=== PATIENT | male | born 1995 | race Caucasian/White ===

== ENCOUNTER 2023-07-21 02:15 | Emergency (ER) | payer SELFPAY ==
[2023-07-21 02:24] VITALS: BP 124/75; PULSE 63; RESP 24; TEMP 36.6; O2SAT 99; BMI 22.4
[2023-07-21 02:47] LABS: Basophils % 0.3 %; Eosinophils # 0.4 10^3/uL (0.0-0.8); Eosinophils % 3.3 %; Hematocrit 41.2 % (37-53); Lymphocytes # 1.8 10^3/uL (0.8-4.8); Lymphocytes % 15.6 %; Mean Corpuscular HGB Conc 33.5 g/dL (30-55); Mean Corpuscular Hemoglobin 30.5 pg (27-33); Mean Corpuscular Volume 90.9 fl (82-101); Monocytes # 0.8 10^3/uL (0.2-0.9); Monocytes % 6.4 %; Neutrophils # 8.63 10^3/uL (1.8-7.7); Neutrophils % 74.1 %; Nucleated Red Blood Cells % 0 %; Platelet Count 214 10^3/cmm (157-399); Red Blood Count 4.53 10^6/uL (3.85-5.65); Red Cell Distribution Width 12.1 % (12.1-15.1); White Blood Count 11.64 10^3/uL (3.29-11.43)
[2023-07-21 03:11] LABS: Lactic Sepsis W/Reflex 1.5 mmol/L (0.5-2.2)
[2023-07-21 03:12] VITALS: BP 109/63; PULSE 56; RESP 21; O2SAT 97
[2023-07-21 03:14] LABS: Alanine Aminotransferase 20 U/L (0-41); Albumin Level 4.4 g/dL (3.5-5.2); Alkaline Phosphatase 82 U/L (40-130); Anion Gap 14.1 (5-19); Aspartate Amino Transferase 23 U/L (0-40); Blood Urea Nitrogen 12 mg/dL (6-20); Calcium 9.2 mg/dL (8.5-10.5); Carbon Dioxide 28 mmol/L (22-29); Chloride 103 mmol/L (98-107); Creatinine Clr Calc Pharmacy 151.4007; Globulin 3.1 g/dL (1.3-4.6); Glomerular Filtration Rate 116.9 mL/min (90-130); Glucose 105 mg/dL (65-115); Osmolality Calculated 292 mOsm/kg (285-295); Potassium 4.1 mmol/L (3.5-5.1); Sodium 141 mmol/L (136-145); Total Bilirubin 0.3 mg/dL (0.15-1.2); Total Protein 7.5 g/dL (6.6-8.7)
[2023-07-21 03:20] LABS: Prolactin 22.57 ng/mL (4.0-15.2)
--- NOTE | 2023-07-21 03:36 | ED_ITS ---
HPI - Seizure 2 General: Chief Complaint: Seizure Stated Complaint: seizures, vomiting, headache Time Seen by Provider: 07/21/23 02:23 History of Present Illness: HPI Narrative: 28-year-old male presents to the emergen cy department with his family member. The family member states that they are concerned that he may have had approximately 20 seizures throughout the day today. For member states they just moved to the area from [place] and that the patient has had a complete evaluation by neurology and an EEG in [place] and they were told that there was no active or underlying seizures that they could diagnose on the EEG. The patient takes no antiepileptic medications. Upon evaluation the patient does appear to be shaking his bilateral upper extremities and no other shaking type movements to the rest of his body. The patient is able to answer questions during his seizure type activity. He is awake alert and oriented and does not appear to be in any acute distress. He does state that he recently used delta 8 which is a synthetic marijuana. He denies chest pain or shortness of breath. Both the family member and the patient states that they have not attempted to establish with a neurologist here in the area and that it has been several years since they last saw a neurologist. Review of Systems 2 General: Reports: 10 or more systems reviewed and unremarkable except in HPI and below Neuro: Reports: seizure-like activity Physical Exam 2 Narrative: EXAM NARRATIVE: Constitutional: the patient appears well nourished and with normal development. Vital signs reviewed as documented. GCS 15, alert and oriented x 4-person, place, time and situation. HENMT: Normocephalic, atraumatic. External ears normal appearance without drainage. Nose without drainage, normal appearance. Mucus membranes moist. Neck is supple, No jugular venous distension, trachea is midline, no appreciable carotid bruits. No lymphadenopathy. No meningeal signs. Flexion, extension and lateral rotation is without pain. Eyes: Pupils are equal, round, reactive to light and accommodation. No scleral icterus. Extra-ocular movement are intact. Thorax is symmetrical and with equal rise and fall with respirations. Resp: Lungs are clear to auscultation. No wheezes, rales, crackles or ronchi at present. Cardio: Regular rate and rhythm. Positive S1, S2. No appreciable murmurs, rubs or gallops. GI: Abdominal exam reveals normal bowel sounds to all quadrants. No organomegaly. No obvious palpable masses noted. No hepatomegally appreciated. Soft, non-tender to palpation. Extremity: Extremities are non-edematous and both femoral and pedal pulses are 2+ and equal bilaterally. Moves all extremities well, sensation in all extremities. Neuro: Alert and oriented x4, person, place, time and situation. Cranial nerves II through XII are grossly intact, there is no focal neurological deficits that I can appreciate at present. Sensation intact to all extremities. 2-point discrimination intact. Light touch intact to all extremities. Motor strength in the upper and lower extremities are equal and bilateral 5/5. Psych: Cooperative, calm, normal thought process, appropriate judgment. Skin: No lesions, rashes. No gross abnormalities noted. Back: Symmetrical, no obvious deformity, No CVA tenderness Course 2 Vital Signs: Vital signs: Vital Signs Temperature 97.8 F 07/21/23 02:24 Pulse Rate 55 L 07/21/23 04:02 Respiratory Rate 19 H 07/21/23 04:02 Blood Pressure 108/63 07/21/23 04:02 Pulse Oximetry 97 07/21/23 04:02 Oxygen Delivery Me thod Room Air 07/21/23 02:24 MDM - Seizure MDM Narrative Medical decision making narrative: Physical exam completed and documented I will obtain a CBC and CMP as well as a lactic acid and prolactin level. Given the patient's presentation and complete neurological awareness and no postictal period the physical exam findings that I am seeing do not support diagnosis of active seizure disorder or seizure type activity at present. Lab Data 07/21/23 02:31 07/21/23 02:31 Labs: Laboratory Results WBC 11.64 10^3/uL (3.29-11.43) H 07/21/23 02:31 RBC 4.53 10^6/uL (3.85-5.65) 07/21/23 02:31 Hgb 13.80 g/dL (11.27-16.99) 07/21/23 02:31 Hct 41.2 % (37-53) 07/21/23 02:31 MCV 90.9 fl (82-101) 07/21/23 02:31 MCH 30.5 pg (27-33) 07/21/23 02:31 MCHC 33.5 g/dL (30-55) 07/21/23 02:31 RDW 12.1 % (12.1-15.1) 07/21/23 02:31 Plt Count 214 10^3/cmm (157-399) 07/21/23 02:31 MPV 10.0 fL (7.4-10.4) 07/21/23 02:31 Neut % (Auto) 74.1 % 07/21/23 02:31 Lymph % (Auto) 15.6 % 07/21/23 02:31 Randall % (Auto) 6.4 % 07/21/23 02:31 Eos % (Auto) 3.3 % 07/21/23 02:31 Baso % (Auto) 0.3 % 07/21/23 02:31 Neut # (Auto) 8.63 10^3/uL (1.8-7.7) H 07/21/23 02:31 Lymph # (Auto) 1.8 10^3/uL (0.8-4.8) 07/21/23 02:31 Randall # (Auto) 0.8 10^3/uL (0.2-0.9) 07/21/23 02:31 Eos # (Auto) 0.4 10^3/uL (0.0-0.8) 07/21/23 02:31 Baso # (Auto) 0.0 10^3/uL (0.0-0.1) 07/21/23 02:31 Nucleated RBC % (auto) 0 % 07/21/23 02:31 Nucleated RBCs # 0.0 /100WBC 07/21/23 02:31 Sodium 141 mmol/L (136-145) 07/21/23 02:31 Potassium 4.1 mmol/L (3.5-5.1) 07/21/23 02:31 Chloride 103 mmol/L (98-107) 07/21/23 02:31 Carbon Dioxide 28 mmol/L (22-29) 07/21/23 02:31 Anion Gap 14.1 (5-19) 07/21/23 02:31 BUN 12 mg/dL (6-20) 07/21/23 02:31 Creatinine 0.8 mg/dL (0.7-1.2) 07/21/23 02:31 GFR Calculation 116.9 mL/min (90-130) 07/21/23 02:31 Glucose 105 mg/dL (65-115) 07/21/23 02:31 Calculated Osmolality 292 mOsm/kg (285-295) 07/21/23 02:31 Lactic Acid 1.5 mmol/L (0.5-2.2) 07/21/23 02:31 Calcium 9.2 mg/dL (8.5-10.5) 07/21/23 02:31 Total Bilirubin 0.3 mg/dL (0.15-1.2) 07/21/23 02:31 AST 23 U/L (0-40) 07/21/23 02:31 ALT 20 U/L (0-41) 07/21/23 02:31 Alkaline Phosphatase 82 U/L (40-130) 07/21/23 02:31 Total Protein 7.5 g/dL (6.6-8.7) 07/21/23 02:31 Albumin 4.4 g/dL (3.5-5.2) 07/21/23 02:31 Globulin 3.1 g/dL (1.3-4.6) 07/21/23 02:31 Prolactin 22.57 ng/mL (4.0-15.2) H 07/21/23 02:31 No radiology studies performed this visit Discharge Plan Discharge Patient Disposition: Home Clinical Impression: Functional neurological symptom disorder with attacks or seizures, Substance abuse or dependence Condition: Stable Discharge Orders: Discharge ED (Routine); Ordered 07/21/23 Ordered By: Breezy Diop Referrals: Urbano Davila [Primary Care Provider] - Discharge Diet: Usual diet Discharge Activity: Resume usual activity Patient Instructions: Opioid Safety, Pain Management Activity Restrictions/Additional Instructions: Activity Restrictions/Additional Instructions: Thank you for choosing [facility] for your healthcare needs today. Please realize that you were seen in the Emergency Department and that we are providing you with an emergency medical screening exam and this may not be a complete and all inclusive of all the testing and or medical work-up that you may need to determine your ailment or severity of your illness. It is very important that you follow-up as instructed with your Primary care provider or Specialist for additional evaluation and to discuss your medical treatment plan. Coding Level of Care Code ED Field Pipelines Supervisor for Víctor Eid
[2023-07-21 04:02] VITALS: BP 108/63; PULSE 55; RESP 19; O2SAT 97
== END 2023-07-21 04:05 | disposition home or self-care (01) ==
PROVIDERS: Emergency Provider Internal Medicine; PCP Family Medicine
DX: F44.5 Conversion disorder with seizures or convulsions (principal); F12.20 Cannabis dependence, uncomplicated
CPT/HCPCS: 80053; 83605; 84146; 85025; 99283

== ENCOUNTER 2023-08-03 13:54 | Emergency (ER) | payer MEDICAID, SELFPAY ==
[2023-08-03 14:00] VITALS: BP 122/72; PULSE 64; RESP 16; TEMP 36.6; O2SAT 98
--- NOTE | 2023-08-03 14:10 | ECG_ITS ---
[facility] Test Date: 2023-08-03 Pat Name: Gonzalez Hanna Department: Room: Gender: Male [employer] Site Monitor: : 1995 Requested By: Silvia Zeng Order Number: [id number] Yony MD: Jordon Ugarte M.D. Measurements Intervals Cando Rate: 66 P: 61 [place]: 134 QRS: 57 QRSD: 96 T: 36 QT: 394 QTc: 416 Interpretive Statements SINUS RHYTHM No previous ECG available for comparison Electronically Signed On 08-03-2023 15:05:16 CDT by Jordon Ugarte M.D. [id number]
--- NOTE | 2023-08-03 14:41 | W.ED.SEIZURE ---
HPI - Seizure General: Chief Complaint: Seizure Stated Complaint: seizures Time Seen by Provider: 08/03/23 14:16 Source: patient Mode of arrival: ambulatory History of Present Illness: HPI Narrative: 28-year-old male presents emergency room with report of seizures. He states he has been told in the past initially they were seizures and told they were not he is currently on Depakote for seizures. He reports sometimes he will wake up with these episodes while he is convulsing of other times or wakes up and he is staring off into space. Does not sound like he has any postictal phase of these episodes. His is here with him in the emergency room states at times he will have episodes in his sleep the longest episode she has seen is 2 minutes Shona like arches back and have some minor convulsive like movements in the extremities while he sleeping. She states the longest episode she is ever seen has been closer to 15 minutes. He had several days last several days. MD complaint: possible seizure Onset (ago): minute(s) Description of Episode: loss of consciousness and tonic-clonic movement Witnessed: Yes - by Bystander Trauma: No Seizure History: Yes Place: Home Possible Precipitating Event: none Associated symptoms: Deny chest pain, chills, confusion, cough, diaphoresis, fever(s), anorexia, malaise, rash, short of breath, syncope or weakness Treatments prior to arrival: none Review of Systems Const: Denies: fever(s), chills, malaise or diaphoresis Card: Denies: chest pain or syncope Resp: Denies: dyspnea GI: Denies: abdominal pain : Denies: dysuria, urinary frequency or urinary urgency Musc: Denies: neck pain or back pain Skin/Breast: Denies: rash Neuro: Denies: confusion Physical Exam Const: COMMON NORMALS: no acute distress GENERAL APPEARANCE: cooperative and comfortable ORIENTATION/CONSCIOUSNESS: Yes awake, Yes oriented to person, Yes oriented to place and Yes oriented to time HENMT: COMMON NORMALS: normocephalic, atraumatic and hearing grossly normal bilaterally HEAD & SCALP: normocephalic and atraumatic Resp: COMMON NORMALS: normal respiratory effort, No retractions, No use of accessory muscles and clear to auscultation bilaterally AUSCULTATION: clear to auscultation bilaterally Cardio: COMMON NORMALS: regular rate, regular rhythm and No murmurs present (Cardio) RATE: regular rate RHYTHM: regular rhythm GI: COMMON NORMALS: Soft to palpation and No hepatosplenomegaly present AUSCULTATION: Yes normoactive bowel sounds PALPATION: Yes Soft to palpation, No Tenderness to palpation present (GI), No Guarding due to palpation present (GI) and Yes No hepatosplenomegaly present Extremity: COMMON NORMALS: normal to inspection, capillary refill normal, no clubbing, cyanosis or edema, no calf tenderness and no pedal edema Neuro: SENSORIUM/ORIENTATION: Yes oriented to person, Yes oriented to place and Yes oriented to time Skin: COMMON NORMALS: no rashes or lesions noted GENERAL SKIN EXAM: no rashes or lesions noted Course Vital Signs: Vital signs: Vital Signs Temperature 97.9 F 08/03/23 14:00 Pulse Rate 57 L 08/03/23 16:06 Respiratory Rate 16 08/03/23 14:00 Blood Pressure 114/71 08/03/23 16:06 Pulse Oximetry 98 08/03/23 16:06 Oxygen Delivery Me thod Room Air 08/03/23 14:00 MDM - Seizure MDM Narrative Medical decision making narrative: No further episodes since arrival here. In talking to him does not sound like he has a true postictal phase and he wakes up what he describes as mid seizure at times. Valproic acid level is low we will increase him to 500 mg 3 times daily. Set up outpatient EEG and follow-up with neurology return if is further problems Lab Data 08/03/23 14:25 08/03/23 14:25 Labs: Laboratory Results WBC 6.13 10^3/uL (3.29-11.43) 08/03/23 14:25 RBC 4.34 10^6/uL (3.85-5.65) 08/03/23 14:25 Hgb 13.50 g/dL (11.27-16.99) 08/03/23 14:25 Hct 39.8 % (37-53) 08/03/23 14:25 MCV 91.7 fl (82-101) 08/03/23 14:25 MCH 31.1 pg (27-33) 08/03/23 14:25 MCHC 33.9 g/dL (30-55) 08/03/23 14:25 RDW 12.3 % (12.1-15.1) 08/03/23 14:25 Plt Count 184 10^3/cmm (157-399) 08/03/23 14:25 MPV 11.1 fL (7.4-10.4) H 08/03/23 14:25 Neut % (Auto) 56.3 % 08/03/23 14:25 Lymph % (Auto) 29.4 % 08/03/23 14:25 [place] % (Auto) 10.8 % 08/03/23 14:25 Eos % (Auto) 2.8 % 08/03/23 14:25 Baso % (Auto) 0.5 % 08/03/23 14: Neut # (Auto) 3.46 10^3/uL (1.8-7.7) 08/03/23 14: Lymph # (Auto) 1.8 10^3/uL (0.8-4.8) 08/03/23 14:25 [place] # (Auto) 0.7 10^3/uL (0.2-0.9) 08/03/23 14:25 Eos # (Auto) 0.2 10^3/uL (0.0-0.8) 08/03/23 14:25 Baso # (Auto) 0.0 10^3/uL (0.0-0.1) 08/03/23 14: Nucleated RBC % (auto) 0 % 08/03/23 14: Nucleated RBCs # 0.0 /100WBC 08/03/23 14:25 Specimen Type Arterial 08/03/23 14:42 Sample Site Radial, left 08/03/23 14:42 ABG pH 7.41 (7.35-7.45) 08/03/23 14:42 ABG pCO2 42.1 mmHg (35-45) 08/03/23 14:42 ABG pO2 93.8 mmHg (80.0-100.0) 08/03/23 14:42 ABG PO2/FiO2 Ratio 0 08/03/23 14:42 ABG HCO3 26.6 mmol/L (22-26) H 08/03/23 14:42 ABG O2 Saturation 98.0 08/03/23 14:42 ABG Base Excess 1.6 mmol/L (-2.0-2.0) 08/03/23 14:42 Raul Test Pos 08/03/23 14:42 A-a O2 Gradient 0.5 mmHg (5-10) L 08/03/23 14:42 Hematocrit 41.5 % (42-52) L 08/03/23 14:42 Hgb O2 Saturation 97.0 % (95-100) 08/03/23 14:42 Carboxyhemoglobin 0.6 %THgb (0.4-20.1) 08/03/23 14:42 Methemoglobin 0.4 % (0.4-1.5) 08/03/23 14:42 Total Hemoglobin 13.5 g/dL (14-18) L 08/03/23 14:42 Sodium 142.0 mmol/L (131-143) 08/03/23 14:42 Potassium 3.7 mmol/L (3.5-5.0) 08/03/23 14:42 Glucose 85.0 mg/dL (70-115) 08/03/23 14:42 Ionized Calcium 1.2 mmol/L (1.1-1.4) 08/03/23 14:42 O2 Delivery Device Room air 08/03/23 14:42 FiO2 21.0 % 08/03/23 14:42 Electronic Service Technician ID glc 08/03/23 14:42 Sodium 140 mmol/L (136-145) 08/03/23 14:25 Potassium 3.8 mmol/L (3.5-5.1) 08/03/23 14:25 Chloride 106 mmol/L (98-107) 08/03/23 14:25 Carbon Dioxide 25 mmol/L (22-29) 08/03/23 14:25 Anion Gap 12.8 (5-19) 08/03/23 14:25 BUN 13 mg/dL (6-20) 08/03/23 14:25 Creatinine 0.8 mg/dL (0.7-1.2) 08/03/23 14:25 GFR Calculation 116.9 mL/min (90-130) 08/03/23 14:25 Glucose 81 mg/dL (65-115) 08/03/23 14:25 Calculated Osmolality 289 mOsm/kg (285-295) 08/03/23 14:25 Lactic Acid 0.8 mmol/L (0.5-2.2) 08/03/23 14:25 Calcium 9.0 mg/dL (8.5-10.5) 08/03/23 14:25 Total Bilirubin 0.4 mg/dL (0.15-1.2) 08/03/23 14:25 AST 18 U/L (0-40) 08/03/23 14:25 ALT 16 U/L (0-41) 08/03/23 14:25 Alkaline Phosphatase 77 U/L (40-130) 08/03/23 14:25 Total Protein 7.2 g/dL (6.6-8.7) 08/03/23 14:25 Albumin 4.1 g/dL (3.5-5.2) 08/03/23 14:25 Globulin 3.1 g/dL (1.3-4.6) 08/03/23 14:25 Urine Color Yellow (Yellow) 08/03/23 14:24 Urine Appearance Clear (CLEAR) 08/03/23 14:24 Urine pH 7 (5-7) 08/03/23 14:24 Ur Specific [place] 1.010 (1.005-1.030) 08/03/23 14:24 Urine Protein Neg (Negative) 08/03/23 14:24 Urine Glucose (UA) Norm (Normal) 08/03/23 14:24 Urine Ketones Negative (Negative) 08/03/23 14:24 Urine Blood Neg (Negative) 08/03/23 14:24 Urine Nitrate Negative (Negative) 08/03/23 14:24 Urine Bilirubin Neg (Negative) 08/03/23 14:24 Urine Urobilinogen 1 mg/dL (Negative) H 08/03/23 14:24 Ur Leukocyte Esterase Negative (Negative) 08/03/23 14:24 Urine RBC None /hpf (0-2) 08/03/23 14:24 Urine WBC 10-15 /hpf (0-5) H 08/03/23 14:24 Ur Squamous Epith Cells 0-4 /hpf (0-5) H 08/03/23 14:24 Amorphous Sediment Not Reportable 08/03/23 14:24 Urine Bacteria Trace /hpf (NONE) 08/03/23 14:24 Urine Mucus Trace /hpf 08/03/23 14:24 Urine Opiates Screen Negative ng/mL (Negative) 08/03/23 14:24 Ur Barbiturates Screen Negative ng/mL (Negative) 08/03/23 14:24 Valproic Acid 5.9 ug/mL (50-100) L 08/03/23 14:25 Ur Phencyclidine Scrn Negative ng/mL (Negative) 08/03/23 14:24 Ur Amphetamines Screen Negative ng/mL (Negative) 08/03/23 14:24 U Benzodiazepines Scrn Negative ng/mL (Negative) 08/03/23 14:24 Urine Cocaine Screen Negative ng/mL (Negative) 08/03/23 14:24 U Marijuana (THC) Screen Positive ng/mL (Negative) H 08/03/23 14:24 No radiology studies performed this visit Discharge Plan Discharge Patient Disposition: Home Clinical Impression: Generalized seizure Condition: Stable Prescriptions: New divalproex 500 mg tablet,delayed release (DR/EC) 500 mg PO TID Qty: 90 0RF Discontinued divalproex 500 mg tablet,delayed release (DR/EC) 500 mg PO BID No Action fluoxetine 40 mg Capsule 40 mg PO DAILY trazodone 50 mg Tablet 50 mg PO BEDTIME PRN (Reason: Sleep) Discharge Orders: Discharge ED (Routine); Ordered 08/03/23 Ordered By: Pillo Veliz Referrals: Urbano Davila [Primary Care Provider] - Discharge Diet: Usual diet Discharge Activity: Resume usual activity Patient Instructions: Opioid Safety, Pain Management Activity Restrictions/Additional Instructions: Thank you for choosing [facility] for your healthcare needs today. Please realize this is an emergency room and that we are providing you with a medical screening exam and this may not be complete and all inclusive of all the testing and or work up that you may need to determine your ailment or severity of your illness. It is very important that you follow up as instructed or that you return to the Emergency Department should you have concerns or if your condition changes or worsens in any way. You were seen today after a report of having had a seizure. Recommend that you increase your valproic acid to 500 mg 3 times a day. Will set up an outpatient sleep deprived EEG and follow-up with neurology. Coding Level of Care Code ED Water Resource Engineer for Víctor Eid
[2023-08-03 14:52] LABS: ABG PCO2 42.1 mmHg (35-45); ABG PH Result 7.41 (7.35-7.45); Alveolar-Arterial Oxygen Gradi 0.5 mmHg (5-10); Arterial Blood Gas Hematocrit 41.5 % (42-52); Base Excess ABG 1.6 mmol/L (-2.0-2.0); Blood Gas Allen Test Pos; Blood Gas Operator Identificat glc; Blood Gas Sample Site Radial, left; Blood Gas Sample Type Arterial; Carboxyhemoglobin 0.6 %THgb (0.4-20.1); HCO3 ABG 26.6 mmol/L (22-26); Ionized Calcium Level - ABG 1.2 mmol/L (1.1-1.4); Methemoglobin 0.4 % (0.4-1.5); Oxygen Device ROOM AIR; PO2 ABG 93.8 mmHg (80.0-100.0); PO2 FiO2 Ratio Arterial Blood 0; Potassium Level - ABG 3.7 mmol/L (3.5-5.0); Total Hemoglobin 13.5 g/dL (14-18)
[2023-08-03 14:59] LABS: Basophils % 0.5 %; Eosinophils # 0.2 10^3/uL (0.0-0.8); Eosinophils % 2.8 %; Hematocrit 39.8 % (37-53); Lymphocytes # 1.8 10^3/uL (0.8-4.8); Lymphocytes % 29.4 %; Mean Corpuscular HGB Conc 33.9 g/dL (30-55); Mean Corpuscular Hemoglobin 31.1 pg (27-33); Mean Corpuscular Volume 91.7 fl (82-101); Mean Platelet Volume 11.1 fL (7.4-10.4); Monocytes # 0.7 10^3/uL (0.2-0.9); Monocytes % 10.8 %; Neutrophils # 3.46 10^3/uL (1.8-7.7); Neutrophils % 56.3 %; Nucleated Red Blood Cells % 0 %; Platelet Count 184 10^3/cmm (157-399); Red Blood Count 4.34 10^6/uL (3.85-5.65); Red Cell Distribution Width 12.3 % (12.1-15.1); White Blood Count 6.13 10^3/uL (3.29-11.43)
[2023-08-03 15:10] LABS: Amphetamines Screen Urine Negative (Negative); Barbiturates Screen Urine Negative (Negative); Benzodiazepines Screen Urine Negative (Negative); Cocaine Screen Urine Negative (Negative); Opiate Screen Urine Negative (Negative); PCP Screen Urine Negative (Negative); THC Screen Urine Positive (Negative)
[2023-08-03 15:16] LABS: Alanine Aminotransferase 16 U/L (0-41); Albumin Level 4.1 g/dL (3.5-5.2); Alkaline Phosphatase 77 U/L (40-130); Anion Gap 12.8 (5-19); Aspartate Amino Transferase 18 U/L (0-40); Blood Urea Nitrogen 13 mg/dL (6-20); Carbon Dioxide 25 mmol/L (22-29); Chloride 106 mmol/L (98-107); Creatinine Clr Calc Pharmacy 154.6323; Globulin 3.1 g/dL (1.3-4.6); Glomerular Filtration Rate 116.9 mL/min (90-130); Glucose 81 mg/dL (65-115); Osmolality Calculated 289 mOsm/kg (285-295); Potassium 3.8 mmol/L (3.5-5.1); Sodium 140 mmol/L (136-145); Total Bilirubin 0.4 mg/dL (0.15-1.2); Total Protein 7.2 g/dL (6.6-8.7)
[2023-08-03 15:17] LABS: Lactic Sepsis W/Reflex 0.8 mmol/L (0.5-2.2); Valproic Acid Level 5.9 ug/mL (50-100)
[2023-08-03 15:39] LABS: Bilirubin Urine Neg (Negative); Blood Urine Neg (Negative); Glucose Urine UA Norm (Normal); Ketones Urine Negative (Negative); Leukocyte Esterase Urine Negative (Negative); Nitrate Urine Negative (Negative); Protein Urine Neg (Negative); Urine Appearance Clear (CLEAR); Urine Color Yellow (Yellow); Urobilinogen Urine 1 mg/dL (Negative); pH Urine 7 (5-7)
[2023-08-03 15:42] LABS: Bacteria Urine TRACE /hpf; Mucus Urine TRACE /hpf; Squamous Epithelial Cell Urine 0-4 /hpf (0-5)
[2023-08-03 15:43] LABS: Add Urine Culture? No
[2023-08-03 16:06] VITALS: BP 114/71; PULSE 57; O2SAT 98
== END 2023-08-03 16:08 | disposition home or self-care (01) ==
PROVIDERS: Emergency Medicine; Emergency Provider Family Medicine; PCP Family Medicine
DX: G40.409 Other generalized epilepsy and epileptic syndromes, not intractable, without status epilepticus (principal)
CPT/HCPCS: 36600; 80051; 80053; 80164; 80306; 81001; 82330; 82805; 83605; 85025; 93005; 99284